=== PATIENT | male | born 1965 ===

== ENCOUNTER 2021-04-26 02:37 | Outpatient (CLI) | payer OTHER, SELFPAY ==
[2021-04-26] MEDS: Albuterol HFA 18 GM 200 PUFF INH IH (13:28)
[2021-04-26] MEDS: Inhaler, Assist Device 1 EACH MC (13:28)
--- NOTE | 2021-04-26 14:52 | W.PFT ---
Date of service: 04/26/21 Time of Service: 12:43 Pulmonary Function Test Result Requesting Provider Tien Guillory Indications: Asthma Interpretation Spirometry: There is no airflow limitation. There is no significant bronchodilator response Impression Normal spirometry Clinical Correlation therefore is recommended.
== END 2021-04-26 02:38 | disposition home or self-care (01) ==
LOC: RT 02:37
PROVIDERS: Visit Provider Orthopaedic Surgery
DX: J45.909 Unspecified asthma, uncomplicated (principal); Z87.891 Personal history of nicotine dependence; X08.8XXS Exposure to other specified smoke, fire and flames, sequela; Z91.82 Personal history of military deployment
CPT/HCPCS: 94060